=== PATIENT | male | born 1955 | race Caucasian/White ===

== ENCOUNTER 2023-08-04 08:12 | Day surgery (SDC) | payer MEDICARE ==
[2023-07-29 11:26] LABS: BASOPHILS # (AUTO) 0.1 X10'3 (0-0.2); EOSINOPHILS # (AUTO) 0.3 X10'3 (0-0.9); EOSINOPHILS % (AUTO) 3.3 % (0-6); LYMPHOCYTES # (AUTO) 2.7 X10'3 (1.1-4.8); LYMPHOCYTES % (AUTO) 27.8 % (21-51); MEAN CORPUSCULAR HEMOGLOBIN 31.6 PG (27.0-31.0); MEAN CORPUSCULAR HGB CONC 33.9 g/dL (33.0-36.5); MEAN CORPUSCULAR VOLUME 93.1 FL (78-98); MEAN PLATELET VOLUME 8.4 FL (7.4-10.4); MONOCYTES # (AUTO) 0.8 X10'3 (0-0.9); MONOCYTES % (AUTO) 8.8 % (2-12); NEUTROPHILS # (AUTO) 5.7 X10'3 (1.8-7.7); NEUTROPHILS % (AUTO) 59.1 % (42-75); PRE OP HEMATOCRIT 45.4 % (42.0-52.0); PRE OP HEMOGLOBIN 15.4 g/dL (14.0-17.9); PRE OP PLATELET COUNT 198 X10'3 (140-440); PRE OP WHITE BLOOD COUNT 9.6 10'3 (4.8-10.8); RED BLOOD COUNT 4.87 X10'6 (4.70-6.10)
[2023-07-29 11:40] LABS: ALBUMIN/GLOBULIN RATIO 1.2 (1.1-1.5); ALKALINE PHOSPHATASE 83 IU/L (46-116); BLOOD UREA NITROGEN 37 MG/DL (7-18); BUN/CREATININE RATIO 43.5 (10.0-20.0); CALCIUM 9.6 MG/DL (8.5-10.1); CHLORIDE 105 MMOL/L (99-107); CREATININE 0.85 MG/DL (0.60-1.10); PRE OP ALT 21 U/L (30-65); PRE OP ANION GAP 8 (8-16); PRE OP AST 13 U/L (10-37); PRE OP BILIRUB, TOTAL 0.5 MG/DL (0.0-1.0); PRE OP GLUCOSE 114 MG/DL (70-104); PRE OP POTASSIUM 4.1 MMOL/L (3.4-5.1); PRE OP SODIUM 141 MMOL/L (135-145); TOTAL PROTEIN 7.4 G/DL (6.4-8.2); eGFR 90 ML/MIN
[2023-08-04] VITALS (16 sets, daily range): BP systolic 11–134; BP diastolic 48–68; PULSE 67–83; RESP 13–19; TEMP 98.3; O2SAT 93–99
[~2023-08-04] VITALS: Ht 181.6 cm; Wt 91.6 kg
[~2023-08-04 08:12] MED LIST: ALOE VERA GEL PO; ASCO500C17 PO; ASPI-103 PO; DOCUMENT DATE & TIME OF BETA-BLOCKER PO ONE; GABA-530 PO; LEVO100T9 PO; LISI10TA27 PO; MELO-102 PO; METO50TA7 PO; MULT-1074 PO; OMEG1CAP21 PO; TUMERIC PO; cefazolin 2gm/D5W 100mL 100 ML IV ONE; famotidine 20mg tablet PO ONE; ringers solution, lacted 1,000 ML IV SCH
[2023-08-04] MEDS ORDERED: proCHLORperazine 10 MG/2 ml inj IV PRN (10:00)
[2023-08-04] MEDS ORDERED: labetalol 20mg/4ml (5mg/ml) syringe IV PRN (10:00)
[2023-08-04] MEDS ORDERED: meperidine/PF 25mg/ml syringe IV PRN ×3 (10:00)
[2023-08-04] MEDS ORDERED: ketorolac trometh. 30mg/ml inj. IV ONE (10:00)
[2023-08-04] MEDS ORDERED: morphine 4 MG/ML inj SYRINge IV PRN (10:00)
[2023-08-04] MEDS ORDERED: BUPIVAcaine/PF 2.5 mg/ml (0.25%) 30ml vial ONE (10:00)
[2023-08-04] MEDS ORDERED: ondansetron/PF 4mg/2ml inj IV PRN (10:00)
[2023-08-04] MEDS ORDERED: hydrALAZINE 20mg/ml inj. IV PRN (10:00)
[2023-08-04] MEDS ORDERED: morphine 2 MG/ML inj. syringe IV PRN (10:00)
[2023-08-04] MEDS ORDERED: BUPIVACAINE liposomal/PF 13.3 MG/ML vial IM ONE (10:00)
[2023-08-04] MEDS ORDERED: acetaminophen 1,000mg/100ml IV 100 ML IV PRN (10:00)
[2023-08-04] MEDS ORDERED: LIDOcaine 1% 30ml preserv. free vial ONE (10:00)
[2023-08-04] MEDS ORDERED: ringers solution, lacted 1,000 ML IV SCH (10:00)
[2023-08-04] MEDS ORDERED: sevoflurane 250ml liquid IH ONE (10:08)
[2023-08-04] MEDS ORDERED: rocuronium 10mg/ml inj IV ONE ×2 (10:08→10:28)
[2023-08-04] MEDS ORDERED: midazolam 1 mg/ML 2ml injection ONE (10:16)
[2023-08-04] MEDS ORDERED: fentaNYL /PF 50mcg/ml 5ml ampule ONE (10:16)
[2023-08-04] MEDS ORDERED: ondansetron/PF 4mg/2ml inj ONE (10:28)
[2023-08-04] MEDS ORDERED: propofol inj 20 ML IV ONE ×2 (10:28→11:58)
[2023-08-04] MEDS ORDERED: LIDOcaine 2% (20mg/ml) 5ml vial ONE (10:28)
[2023-08-04] MEDS ORDERED: dexamethasone sod phosphate 4mg/ml inj. ONE (10:28)
[2023-08-04] MEDS ORDERED: BUPIVAcaine/PF 2.5 mg/ml (0.25%) 30ml vial IJ ONE (10:34)
[2023-08-04] MEDS ORDERED: LIDOcaine 1% 30ml preserv. free vial IJ ONE (10:35)
[2023-08-04] MEDS ORDERED: neostigmine methylsulfate 1 MG/ML 10ml vial ONE (11:58)
[2023-08-04] MEDS ORDERED: glycopyrrolate 0.2mg/ml inj ONE (11:58)
--- NOTE | 2023-08-04 12:07 | NUR ---
Received from OR via [facility], accompanied by Anesthesiologist DR ROBERTS and report given by Anesthesiologist. PT IS GROGGY BUT RESPONDS TO VERBAL STIMULI. PT PLACED ON BEDSIDE MONITOR, VSS. PT IS IN SR WITH RATE IN LOW 80'S. PT HAS 20G PIV TO LEFT HAND WITH LR INFUSING ORDERED. PT HAS BAND-AID X2 TO MID ABD AND SMALL ISLAND DRSG TO UMBILICUS. ALL ARE CDI. PT DENIES PAIN AT THIS TIME. WILL CONTINUE TO ASSESS
[2023-08-04] MEDS ORDERED: HYDROcodone/acetaminophen 5mg/325mg tablet PO PRN (12:20)
--- NOTE | 2023-08-04 14:50 | NUR ---
PT TAKEN OFF MONITOR TO GET DRESSED AND AMBULATE TO RESTROOM AND VOID. WILL CONTINUE TO ASSESS
--- NOTE | 2023-08-04 15:00 | NUR ---
PT DID VOID 200ML, BLADDER SCAN PERFORMED AND PVR YIELDED 160ML. DR COTA AWARE AND GAVE THE OKAY FOR PATIENT TO DISCHARGE HOME. PT EDUCATED ON IMPORTANCE TO VOID OFTEN AND IF ANY PROBLEMS SHOULD ARISE AND IS UNABLE TO VOID THE NEED TO GO TO THE ER. PT STATES VERBAL UNDERSTANDING.
--- NOTE | 2023-08-04 15:51 | NUR ---
ALL DISCHARGE CRITERIA HAS BEEN MET. VSS, PAIN AT A TOLERABLE LEVEL, VOIDING AND ABLE TO SAFELY AMBULATE AND TRANSFER SELF. IV TAKEN OUT WITHOUT ANY COMPLICATIONS. ALL DISCHARGE INSTRUCTIONS COVERED WITH PATIENT AND ALL QUESTIONS ANSWERED. PATIENT TAKEN OUT VIA WHEELCHAIR TO PERSONAL VEHICLE WHERE STEVEN DROVE PATIENT HOME.
== END 2023-08-04 15:22 | disposition home or self-care (01) ==
LOC: PAS 08:12
PROVIDERS: ATTEND Surgery
DX: K40.20 Bilateral inguinal hernia, without obstruction or gangrene, not specified as recurrent (principal); K42.9 Umbilical hernia without obstruction or gangrene; I10 Essential (primary) hypertension; G62.9 Polyneuropathy, unspecified; Z72.89 Other problems related to lifestyle; Z79.82 Long term (current) use of aspirin; Z79.899 Other long term (current) drug therapy; Z88.1 Allergy status to other antibiotic agents; Z96.652 Presence of left artificial knee joint; Z98.890 Other specified postprocedural states; Z83.3 Family history of diabetes mellitus; Z82.61 Family history of arthritis
CPT/HCPCS: 36415; 49591; 49650; 80053; 82948; 85025; 93005; C1781; C9290; J0131; J0690; J1100; J1885; J2250; J2405; J2704; J2710; J3010; J3490; J7030; J7120; Z7506; Z7508; Z7512; A4215; A4618

== ENCOUNTER 2024-06-03 18:20 | Emergency (ER) | payer MEDICARE ==
[~2024-06-03] VITALS: Ht 180.3 cm; Wt 95.5 kg
[~2024-06-03 18:20] MED LIST changes: -DOCUMENT DATE & TIME OF BETA-BLOCKER PO ONE; -cefazolin 2gm/D5W 100mL 100 ML IV ONE; -famotidine 20mg tablet PO ONE; -ringers solution, lacted 1,000 ML IV SCH
[2024-06-03 19:06] LABS: BASOPHILS % (AUTO) 0 % (0-1); EOSINOPHILS # (AUTO) 0.5 X10'3 (0-0.9); EOSINOPHILS % (AUTO) 3.8 % (0-6); HEMATOCRIT 47.5 % (42.0-52.0); LYMPHOCYTES # (AUTO) 0.8 X10'3 (1.1-4.8); LYMPHOCYTES % (AUTO) 5.9 % (21-51); MEAN CORPUSCULAR HEMOGLOBIN 30.3 PG (27.0-31.0); MEAN CORPUSCULAR HGB CONC 33.7 g/dL (33.0-36.5); MEAN CORPUSCULAR VOLUME 89.8 FL (78-98); MEAN PLATELET VOLUME 8.8 FL (7.4-10.4); MONOCYTES # (AUTO) 0.5 X10'3 (0-0.9); MONOCYTES % (AUTO) 4.1 % (2-12); NEUTROPHILS # (AUTO) 11.4 X10'3 (1.8-7.7); NEUTROPHILS % (AUTO) 86.2 % (42-75); PLATELET COUNT 159 X10'3 (140-440); RED BLOOD COUNT 5.29 X10'6 (4.70-6.10); RED CELL DISTRIBUTION WIDTH 13.5 % (11.5-14.5); WHITE BLOOD COUNT 13.3 X10'3 (4.5-11.0)
[2024-06-03 19:26] LABS: ALANINE AMINOTRANSFERASE 38 U/L (12-78); ALBUMIN 4.2 G/DL (3.4-5.0); ALBUMIN/GLOBULIN RATIO 1.3 (1.1-1.5); ALKALINE PHOSPHATASE 70 IU/L (46-116); ANION GAP 8 (8-16); ASPARTATE AMINO TRANSFERASE 20 U/L (10-37); BILIRUBIN,TOTAL 0.6 MG/DL (0.1-1.0); BLOOD UREA NITROGEN 37 MG/DL (7-18); BUN/CREATININE RATIO 30.6 (10.0-20.0); CHLORIDE 103 MMOL/L (99-107); CREATININE 1.21 MG/DL (0.60-1.10); GLUCOSE 202 MG/DL (70-104); LIPASE 42 U/L (16-77); POTASSIUM 4.1 MMOL/L (3.5-5.1); SODIUM 138 MMOL/L (135-145); TOTAL CARBON DIOXIDE 26.6 MMOL/L (24-32); TOTAL PROTEIN 7.5 G/DL (6.4-8.2); eCRCL 62 ML/MIN; eGFR 60 ML/MIN
[2024-06-03] MEDS: normal saline 1000ml 1,000 ML IV ONE (20:15)
[2024-06-03] MEDS: meperidine/PF 50mg/ml syringe IV ONE (20:32)
[2024-06-03] MEDS: normal saline 1000ML IV soln IVB ONE (20:40)
[2024-06-03] MEDS: ondansetron/PF 4mg/2ml inj IV ONE (20:40)
[2024-06-03] MEDS: ketorolac trometh. 30mg/ml inj. IV ONE (20:43)
[2024-06-03] MEDS: sildenafil citrate 20mg tablet PO STA (20:46)
[2024-06-03 20:47] LABS: BILIRUBIN,URINE NEGATIVE (Neg); CLARITY,URINE CLEAR (Clear); COLOR,URINE YELLOW (Yellow); GLUCOSE, URINE 250 mg/dl (Neg); KETONES,URINE 15 mg/dl (Neg); LEUKOCYTE ESTERASE ,URINE NEGATIVE (Neg); NITRITES, URINE NEGATIVE (Neg); OCCULT BLOOD,URINE NEGATIVE (Neg); PH,URINE 5.5 (4.8-8.0); PROTEIN,URINE 30 mg/dl (Neg); UROBILINOGEN,URINE 0.2 E.U/dL (0.2-1.0)
[2024-06-03 21:22] LABS: BACTERIA,URINE NONE SEEN /HPF (Neg); RBC,URINE 0-2 /HPF (0-2); UA COLLECTION TYPE CLN CATCH MIDSTREAM; WBC,URINE 0-4 /HPF (0-4)
[2024-06-03 21:23] LABS: COARSE GRANULAR CAST 0-3 /LPF (NEGATIVE); MUCUS STRANDS FEW /LPF (Neg); SQUAMOUS EPITHELIAL CELL,UR NONE SEEN /LPF (FEW)
[2024-06-03 21:59] VITALS: BP 120/57; PULSE 69; RESP 14; O2SAT 95
[2024-06-03] MEDS ORDERED: TADA20TA PO (22:54)
[2024-06-03] MEDS: HYDROcodone/acetaminophen 10/325mg tab PO ONE (23:05)
[2024-06-03 23:13] VITALS: TEMP 97.7
[2024-06-04 01:10] LABS: TOTAL CELLS COUNTED 100
[2024-06-04 01:12] LABS: PLATELET ESTIMATE NORMAL
== END 2024-06-03 23:16 | disposition home or self-care (01) ==
LOC: ER 18:20
DX: N23 Unspecified renal colic (principal); Z91.041 Radiographic dye allergy status; Z79.899 Other long term (current) drug therapy; Z79.82 Long term (current) use of aspirin
CPT/HCPCS: 36415; 74176; 80053; 81001; 83690; 85007; 85025; 96361; 96374; 96375; 99285; J1885; J2175; J2405; J7030